=== PATIENT | male | born 1985 | race Caucasian/White ===

== ENCOUNTER → 2019-01-29 | Day surgery (SDC) | payer BC ==
[~2019-01-29] MED LIST: Buffered Lidocaine 1% SYRIN* 1 ML/SYRINGE INTRADERM ONE; Bupivacaine 0.25% SDV PF* 10 ML VIAL INJ ONE; Bupivacaine 0.5%* 50 ML MDV VIAL ONE; Dexamethasone IV* 4 MG/ML 1 ML (4 MG) ONE; Famotidine IV* 10 MG/ML 2 ML (20 mg) IV ONE; KETAMINE HCL* 50 MG/ML 10 ML VIAL ONE; Lactated Ringers 1000 ML Bag* 1,000 ML IV SCH; Lidocaine 2% PF * 5 ML VIAL ONE; Midazolam* 1 MG/ML 5 ML VIAL (5 MG) ONE; Naloxone* 0.4 MG/ML 1 ML VIAL IV PRN; Ondansetron INJ* 2 MG/ML VIAL IV PRN; Ondansetron INJ* 2 MG/ML VIAL ONE; Propofol* 10 MG/ML 20 ML BTL ONE; ceFAZolin 2 GM in NS PREMIX(*) 2 GM/100 ML BAG IVPB ONE; fentaNYL* 50 MCG/ML 2 ML VIAL (100 MCG VIAL) ONE; fentaNYL* 50 MCG/ML 5 ML VIAL (250 MCG VIAL) ONE; oxyCODONE/Acetamin 5/325 MG* TAB ONE
[2019-01-29] MEDS: oxyCODONE/Acetamin 5/325 MG* TAB PO PRN ×2 (20:37→20:39)
[2019-01-29] MEDS: fentaNYL* 50 MCG/ML 2 ML VIAL (100 MCG VIAL) IV PRN ×2 (20:46→20:53)
--- NOTE | 2019-01-29 21:11 | OP ---
DATE OF OPERATION: 01/29/19 [facility] DATE OF : 85 SURGEON: Jeremi Winkler MD [employer] DRAW[employer] OPERATOR: PAULO Leroy ANESTHESIOLOGIST: Dr. Oneal. ANESTHESIA: General. PRE-OP DIAGNOSIS: Left radial head fracture. POST-OP DIAGNOSIS: Left radial head fracture. OPERATIVE PROCEDURE: Repair of highly comminuted left radial head fracture with radial head replacement using [employer] implant. INDICATIONS: Taz has a very comminuted and displaced radial head fracture. I talked to him about his options. I thought the only option would be for replacement given the amount of comminution. He understood that. We talked about risk of loosening, risk of the implant needing to come out, risk of capitellar wear. He wants to proceed. We also discussed risk of nerve injury. ESTIMATED BLOOD LOSS: 20 mL. COMPLICATIONS: None. FINDINGS: See above and below. DESCRIPTION OF PROCEDURE: Taz was seen in the preoperative holding area. The correct site, side, and procedure were identified. We came back to the operating room where the arm was prepped and draped in the usual fashion and a time-out was performed. The arm was exsanguinated with the Esmarch and the tourniquet was inflated to 250 mmHg. I made an incision centered over the lateral epicondyle extending distally and proximally. Dissection was carried down. Full-thickness flaps were raised off the fascia. The interval between the ECRL and the EDC was utilized to gain access to the radiocapitellar joint. The annular ligament was split. The lateral ulnar collateral ligament was actually not peeled off from the lateral epicondyle and looks like it was not torn. The multiple fragments of comminution were seen, some sitting posterior to the capitellum. It was immediately apparent that this was not going to be salvageable. I therefore marked out the neck cut and I used a sagittal saw to make a neck cut through the appropriate location on the radial neck. I dissected down through the supinator very carefully with the tenotomy scissors with the forearm in pronation to make sure the posterior interosseous nerve was protected. I gently placed baby Hohmann retractors around the radial neck, again making sure the posterior interosseous nerve was protected. After the neck was excised, I took all the fragments and selected a 24 mm radial head. I rasped up and then placed the trial radial head. I liked the fit. It was definitely not overstuffed. I therefore selected the final S[employer] implants and these were placed in standard fashion utilizing the guide placed in the fovea of the distal ulna. With the forearm in about 20 to 30 degrees of supination, the torque screwdriver was used to secure the stem to the radial head. After everything was in and I went ahead and checked the stability, everything looked very good. I therefore irrigated out the wound copiously. The split in the capsule and tendon was repaired with 0-Vicryl suture. The subcutaneous tissue was reapproximated with 3-0 Vicryl. The skin was closed with Steri-Strips. 0.25% plain Marcaine was infiltrated all about the operative area. The wound was dressed with Xeroform, 4x4, sterile Webril, and then a long arm splint with the lateral buttress was applied. He was taken to the recovery room in stable condition. [id number]/[facility] #: [id number] LILLY
[2019-01-29 21:14] VITALS: BP 142/82
--- NOTE | 2019-02-09 16:11 | OP ---
OPERATIVE REPORT: ADDENDUM: DATE OF OPERATION: 01/29/19 DATE OF : 85 PRE-OP DIAGNOSES: 1. Left highly comminuted and displaced radial head fracture. 2. Left minimally displaced intraarticular distal radius fracture. POST-OP DIAGNOSES: 1. Left highly comminuted and displaced radial head fracture. 2. Left minimally displaced intraarticular distal radius fracture. OPERATIVE PROCEDURE: 1. Repair of highly comminuted left radial head fracture with radial head replacement using S[employer] implant. 2. Closed treatment of the left distal radius fracture. DESCRIPTION OF PROCEDURE: In addition to the aforementioned surgery for the left radial head as previously mentioned in the operative note, I also made the decision to treat the left distal radius fracture closed. As part of his dressing, the long arm splint was continued on holding the wrist in the slightly extended position of about 20 degrees of extension. We will go ahead and plan to treat this left distal radius fracture closed. [id number] #: [id number] LILLY
== END | disposition home or self-care (01) ==
LOC: OR 16:05
PROVIDERS: ATTEND Orthopaedic Surgery Hand Surgery
DX: S52.122A Displaced fracture of head of left radius, initial encounter for closed fracture (principal); W11.XXXA Fall on and from ladder, initial encounter; Y92.9 Unspecified place or not applicable; S52.502A Unspecified fracture of the lower end of left radius, initial encounter for closed fracture; Z87.891 Personal history of nicotine dependence
CPT/HCPCS: 76000; A9270-GY; C1713; C1776; J0690; J1100; J2250; J2405; J2704; J3010; J3490